=== PATIENT | male | born 1960 | race Caucasian/White ===

== ENCOUNTER 2016-08-03 21:26 | Emergency (ER) | payer MEDICAID ==
[2016-08-03 21:33] VITALS: TEMP 98.1
[2016-08-03 22:26] VITALS: RESP 16; O2SAT 95
--- NOTE | 2016-08-03 22:30 | EDPHY ---
H & P Stated Complaint: diarrhea, abd cramping Time Seen by Provider: 08/03/16 22:00 HPI/ROS: HPI: 56-year-old homeless gentleman presents to emergency department with chief concern diarrhea and abdominal cramping. Onset suddenly this morning upon awakening. Reports 15 episodes of liquid stool today associated with cramping during stools only. Reports associated chills. Denies fever, URI symptoms, shortness of breath, chest pain, abdominal pain, nausea, vomiting. Denies bloody stool. No recent travel. No recent antibiotic use. 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 No acute distress. Head: Normalocephalic. Atraumatic. EENT: PERRLA. EOMI. No pallor or injection. Anicteric. No nystagmus. No injection. Neck: Supple, nontender. No lymphadenopathy. Full range of motion. No meningismus. Respiratory: Breathing unlabored. Breath sounds equal bilaterally and clear to auscultation. No adventitious sounds. CV: Chest nontender, atraumatic. Heart rate regular. No murmur, distal pulses 2+ bilaterally. Brisk cap refill all extremities. GI: Abdomen soft, nontender. Bowel sounds hyperactive and positive x4 quadrants. : No CVA or flank tenderness. Neuro: Alert. Oriented x 3. Speech clear. Nonfocal cranial nerves throughout. Sensation intact all extremities. Skin: Skin warm, dry, intact. No rashes, abrasions, or lacerations. Skin turgor normal. Extremities: Full range of motion in all 4 extremities. Strength 5+ all extremities. Constitutional: Initial Vital Signs Temperature (C) 36.7 C 08/03/16 21:30 Heart Rate 85 08/03/16 21:30 Respiratory Rate 17 08/03/16 21:30 Blood Pressure 156/98 H 08/03/16 21:30 O2 Sat (%) 97 08/03/16 21:30 O2 Delivery Mode Room Air Allergies/Adverse Reactions: diphenhydramine Allergy (Verified 08/21/15 20:59) haloperidol [From Haldol] Allergy (Verified 08/21/15 20:59) haloperidol lactate [From Haldol] Allergy (Verified 08/21/15 20:59) meperidine HCl [From Demerol] Allergy (Verified 08/21/15 20:59) promethazine HCl [From Phenergan] Allergy (Verified 08/21/15 20:59) Home Medications: Medication Instructions Recorded Gabapentin [Neurontin 400 MG (*)] 800 mg PO TID 03/04/14 Lisinopril 30 mg PO 03/04/14 oxyCODONE/APAP 5/325 [Percocet 1 tab PO Q6 #10 tab 05/03/15 5/325] Gabapentin [Neurontin] 300 mg PO HS #14 cap 06/03/15 Medical Decision Making ED Course/Re-evaluation: 56-year-old gentleman presents with 1 day of diarrhea that onset suddenly this morning. He has abdominal cramping associated only with the episodes of diarrhea. He has no abdominal pain presently. He is afebrile. He is nontoxic. He is tolerating p.o.. Abdomen is soft and benign. He will provide a stool culture for rest. Cell phone [phone]. He is homeless. 2250: Stool specimen was obtained however it was a solid stool so unable to use for stool culture. Patient counseled regarding diarrhea, electrolyte replacement, and follow up with primary care. Patient requested Toradol for knee pain. Given 30 IM Toradol. Differential Diagnosis: Differential diagnosis includes but is not limited to infectious diarrhea, IBS, colitis, enteritis Departure - Departure Disposition: Home, Routine, Self-Care Clinical Impression: Diarrhea Condition: Good Instructions: Acute Diarrhea (ED) Additional Instructions: Plan: As discussed, please follow-up with your primary care provider Dr. Nickerson this week Since your stool specimen was a solid stool specimen, it will not be run for tests If you develop abdominal pain or fever return promptly for recheck Drink plenty of fluids, including electrolyte replacement Use [facility] to help bulk stool Referrals: Edward Nickerson MD [Primary Care Provider] - As per Instructions
[2016-08-03] MEDS ORDERED: KETOROLAC 30 MG/1 ML SDV IM ONE (22:57)
[2016-08-03 23:11] VITALS: BP 168/94; PULSE 82
== END 2016-08-03 23:13 | disposition home or self-care (01) ==
DX: R19.7 Diarrhea, unspecified (principal); I10 Essential (primary) hypertension; F17.200 Nicotine dependence, unspecified, uncomplicated
CPT/HCPCS: J1885

== ENCOUNTER 2016-09-13 18:59 | Emergency (ER) | payer MEDICAID ==
[2016-09-13 19:17] VITALS: RESP 16; TEMP 97.5; O2SAT 95
--- NOTE | 2016-09-13 19:28 | EDPHY ---
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), Hep C, HTN, arthritis knees - Social History Smoking Status: Light smoker Constitutional: Initial Vital Signs Temperature (C) 36.4 C 09/13/16 19:05 Heart Rate 74 09/13/16 19:05 Respiratory Rate 16 09/13/16 19:05 Blood Pressure 161/94 H 09/13/16 19:05 O2 Sat (%) 95 09/13/16 19:05 O2 Delivery Mode Room Air Allergies/Adverse Reactions: diphenhydramine Allergy (Verified 09/13/16 19:18) haloperidol [From Haldol] Allergy (Verified 09/13/16 19:18) haloperidol lactate [From Haldol] Allergy (Verified 09/13/16 19:18) meperidine HCl [From Demerol] Allergy (Verified 09/13/16 19:18) promethazine HCl [From Phenergan] Allergy (Verified 09/13/16 19:18) Home Medications: Medication Instructions Recorded Gabapentin [Neurontin 400 MG (*)] 800 mg PO TID 03/04/14 Lisinopril 30 mg PO 03/04/14 oxyCODONE/APAP 5/325 [Percocet 1 tab PO Q6 #10 tab 05/03/15 5/325] Gabapentin [Neurontin] 300 mg PO HS #14 cap 06/03/15 Medical Decision Making ED Course/Re-evaluation: CHIEF COMPLAINT: "I've got the runs and gas really bad;" abdominal pain HISTORY OF PRESENT ILLNESS: The patient is a 56 y/o male with a history of hereditary hemorrhagic telangiectasia complaining of acute onset diarrhea around 16:30, shortly after eating dinner at the alf. He states due to his blood condition usually causes abdominal pain whenever he has a GI condition. He denies vomiting, fever, or recent illness. He has not used antibiotics recently. REVIEW OF SYSTEMS: A 10 point review of systems was performed and is negative with the exception of the elements mentioned in the history of present illness. PHYSICAL EXAM: HR, BP, O2 Sat, RR. Temp noted General Appearance: Alert, well hydrated, appropriate, and non-toxic appearing. Head: Atraumatic without scalp tenderness or obvious injury Eyes: Pupils equal, round, reactive to light and accommodation, EOMI, no trauma , no injection. Ears: Clear bilaterally, no perforation, normal landmarks Nose: Atraumatic, no rhinorrhea, clear. Throat: There is no erythema or exudates, no lesions, normal tonsils, mucus membranes moist. Neck: Supple, nontender, no lymphadenopathy. Respiratory: No retractions, no distress, no wheezes, and no accessory muscle use. Lungs are clear to auscultation bilaterally. Cardiovascular: Regular rate and rhythm, no murmurs, rubs, or gallops. Good capillary refill all extremities. Gastrointestinal: Abdomen is soft, diffuse and mild tenderness, non-distended, no masses, no rebound, no guarding, no peritoneal signs. Musculoskeletal: Normal active ROM of all extremities, atraumatic. Neurological: Alert, appropriate, and interactive. The patient has normal DTRs and non-focal cranial nerves, motor, sensory, and cerebellar exam. Skin: No rashes, good turgor, no nodules on palpation. Past medical history: hereditary hemorrhagic telangiectasia, Hepatitis C, hypertension Past surgical history: denies Family history: noncontributory Social history: In work release from alf DIFFERENTIAL DIAGNOSIS: The differential diagnosis for the patient's abdominal pain included but was not limited to appendicitis, cholecystitis, hernias, testicular torsion, gastritis, and urinary tract infection. MEDICAL DECISION MAKING: This is a 56 y/o male arriving from work release complaining of pain associated with diarrhea and gas onset immediately after eating dinner tonight. He has a nonsurgical abdomen on exam; palpation causes nausea. IV NS and 1mg IV Dilaudid administered. GI Pathogen lab ordered. 2057: Patient is feeling improved. He will be given a GI cocktail just prior to discharge. Return precautions given. He is comfortable with this plan. - Data Points Medications Given: Discontinued Medications Hydromorphone HCl (Dilaudid) 1 mg IVP EDNOW ONE Stop: 09/13/16 19:34 Last Admin: 09/13/16 19:40 Dose: 1 mg Sodium Chloride (Ns) 1,000 mls @ 0 mls/hr IV ONCE ONE PRN Reason: Wide Open Stop: 09/13/16 19:34 Last Admin: 09/13/16 19:40 Dose: 1,000 mls Departure - Departure Disposition: Home, Routine, Self-Care Clinical Impression: Diarrhea Qualifiers: Diarrhea type: unspecified type Qualified Code(s): R19.7 - Diarrhea, unspecified Condition: Good Instructions: Acute Diarrhea (ED) Additional Instructions: Follow up with your primary care provider for symptoms not improved over the next 2-3 days. Referrals: Edward Nickerson MD [Primary Care Provider] - As per Instructions Report Scribed for: Buzz Ferreira Report Scribed by: Kayleigh Briones Date of Report: 09/13/16 Time of Report: 19:46
[2016-09-13] MEDS ORDERED: HYDROmorphONE/DILAUDID 1 MG/ML SYR IVP ONE (19:33)
[2016-09-13] MEDS ORDERED: NS 1,000 ML IV ONE (19:33)
[2016-09-13] MEDS ORDERED: MAALOX/LIDO/HYOSC GI COCKTAIL 55 ML BOTTLE PO ONE (20:58)
[2016-09-13 21:18] VITALS: BP 160/90; PULSE 89
== END 2016-09-13 21:17 | disposition home or self-care (01) ==
DX: R19.7 Diarrhea, unspecified (principal); I10 Essential (primary) hypertension; F17.200 Nicotine dependence, unspecified, uncomplicated
CPT/HCPCS: 96374; J1170

== ENCOUNTER 2016-09-30 09:43 | Emergency (ER) | payer MEDICAID ==
[2016-09-30 09:51] VITALS: RESP 16; TEMP 97.7
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
[2016-09-30] MEDS ORDERED: KETOROLAC 30 MG/1 ML SDV IM ONE (12:42)
[2016-09-30 13:19] VITALS: BP 113/74; PULSE 85; O2SAT 98
== END 2016-09-30 13:17 | disposition home or self-care (01) ==
DX: S93.402A Sprain of unspecified ligament of left ankle, initial encounter (principal); S83.92XA Sprain of unspecified site of left knee, initial encounter; F17.200 Nicotine dependence, unspecified, uncomplicated; W18.42XA Slipping, tripping and stumbling without falling due to stepping into hole or opening, initial encounter
CPT/HCPCS: J1885; L4386

== ENCOUNTER 2016-10-01 14:50 | Emergency (ER) | payer MEDICAID ==
[2016-10-01 15:05] VITALS: BP 179/93; PULSE 80; RESP 18; TEMP 97.9; O2SAT 98
== END 2016-10-01 15:10 | disposition left against medical advice (07) ==
LOC: EDUNIT#
DX: Z53.21 Procedure and treatment not carried out due to patient leaving prior to being seen by health care provider (principal)